=== PATIENT | female | born 1970 | race Caucasian/White ===

== ENCOUNTER 2018-07-05 07:38 | Inpatient (IN) | payer SELFPAY ==
[~2018-07-05] VITALS: Ht 162.6 cm; Wt 63.5 kg
--- OUTSIDE RECORDS SUMMARY | 2018-07-05 07:43 | XMS REPORT ---
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
--- OUTSIDE RECORDS SUMMARY | 2018-07-05 07:43 | XMS REPORT ---
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
--- OUTSIDE RECORDS SUMMARY | 2018-07-05 07:43 | XMS REPORT ---
Author Author PJ BECKFORD 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 377003952 ALLERGIES No Known Allergies SOCIAL HISTORY Never Assessed PLAN OF CARE Activity Details Follow Up 6 Months Reason: VITAL SIGNS Height 65 in 2017-02-09 Weight 142.8 lbs 2017-02-09 Temperature 98.9 degrees Fahrenheit 2017-02-09 Heart Rate 76 bpm 2017-02-09 Respiratory Rate 18 2017-02-09 BMI 23.76 kg/m2 2017-02-09 Blood pressure systolic 130 mmHg 2017-02-09 Blood pressure diastolic 78 mmHg 2017-02-09 MEDICATIONS Medication Instructions Dosage Frequency Start Date End Date Duration Status Celexa 20 MG Orally Once a day 1 24h Aug, Active Xanax 0.25 MG Orally 2 times a day, prn anxiety 1 tablet Aug, Active RESULTS Name Result Date Reference Range CBC 2017-02-09 WBC 8.2 3.4-10.8 RBC 4.15 3.77-5.28 Hemoglobin 12.3 11.1-15.9 Hematocrit 37.3 34.0-46.6 MCV 90 79-97 MCH 29.6 26.6-33.0 MCHC 33.0 31.5-35.7 RDW 13.7 12.3-15.4 Platelets 321 150-379 Neutrophils 63 Lymphs 27 Monocytes 6 Eos 3 Basos 1 Immature Cells Neutrophils (Absolute) 5.1 1.4-7.0 Lymphs (Absolute) 2.2 0.7-3.1 Monocytes(Absolute) 0.5 0.1-0.9 Eos (Absolute) 0.2 0.0-0.4 Baso (Absolute) 0.1 0.0-0.2 Immature Granulocytes 0 Immature Grans (Abs) 0.0 0.0-0.1 NRBC Hematology Comments: PROCEDURES Procedure Date Ordered Result Body Site COMPLETE CBC W/AUTO DIFF WBC February 09, 2017 VENIPUNCT, ROUTINE* February 09, 2017 IMMUNIZATIONS No Known Immunizations MEDICAL (GENERAL) HISTORY Type Description Date Medical History anxiety Surgical History x 3 Hospitalization History Child
--- OUTSIDE RECORDS SUMMARY | 2018-07-05 07:43 | XMS REPORT ---
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 Problem Anxiety F41.9 Active Assessment Anxiety F41.9 Active Assessment Family history of heart disease Z82.49 Active Medications Medication Code System Code Instructions Start Date End Date Status Dosage Xanax [facility] [address]-29 0.25 MG Orally 2 times a day, prn anxiety Aug 05, 2016 1 tablet Celexa [facility] [address]-40 20 MG Orally Once a day Aug 05, 2016 1 Procedures Procedure Coding System Code Date LIPID PANEL CPT-4 84427 Aug 05, 2016 VENIPUNCT, ROUTINE* CPT-4 28990 Aug 05, 2016 COMPREHEN METABOLIC PANEL CPT-4 56567 Aug 05, 2016 Office Visit, New Pt., Level 3 CPT-4 34143 Aug 05, 2016 Vital Signs Date/Time: Aug 05, 2016 Cardiac Monitoring Heart Rate 80 bpm Weight 143.4 lbs Height 65 in BMI 23.86 Index Blood Pressure Diastolic 92 mmHg Blood Pressure Systolic 148 mmHg Results Name Result Date Reference Range Unit Abnormality Flag LIPID PANEL ----HDL Cholesterol 67 20160805 >39 mg/dL ----VLDL Cholesterol Zain 14 20160805 5-40 mg/dL ----LDL Cholesterol Calc 150 20160805 0-99 mg/dL H ----Cholesterol, Total 231 20160805 100-199 mg/dL H ----Triglycerides 68 50351131 0-149 mg/dL ROUTINE VENIPUNCTURE CMP ----Sodium, Serum 143 20160805 136-144 mmol/L ----BUN/Creatinine Ratio 14 20160805 9-23 ----Chloride, Serum 104 20160805 97-106 mmol/L ----Potassium, Serum 4.5 57211062 3.5-5.2 mmol/L ----Calcium, Serum 9.5 73869984 8.7-10.2 mg/dL ----Protein, Total, Serum 7.3 54159861 6.0-8.5 g/dL ----Carbon Dioxide, Total 21 20160805 18-29 mmol/L ----A/G Ratio 1.6 98203930 1.1-2.5 ----eGFR If NonAfricn Am 99 13254089 >59 mL/min/1.73 ----Bilirubin, Total 0.2 69090255 0.0-1.2 mg/dL ----eGFR If Africn Am 115 83318714 >59 mL/min/1.73 ----BUN 10 19029414 6-24 mg/dL ----Albumin, Serum 4.5 28741204 3.5-5.5 g/dL ----Globulin, Total 2.8 08632703 1.5-4.5 g/dL ----Creatinine, Serum 0.72 68550667 0.57-1.00 mg/dL ----ALT (SGPT) 13 20160805 0-32 IU/L ----Glucose, Serum 98 15137342 65-99 mg/dL ----Alkaline Phosphatase, S 69 68722259 39-117 IU/L ----AST (SGOT) 13 20160805 0-40 IU/L Summary Purpose eClinicalWorks Submission
--- OUTSIDE RECORDS SUMMARY | 2018-07-05 07:43 | XMS REPORT ---
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 Unknown Non Drug Allergy Sep, Unknown SOCIAL HISTORY No smoking Hx information available PLAN OF CARE VITAL SIGNS Height 65 in 2016-09-05 Weight 138.0 lbs 2016-09-05 Heart Rate 84 bpm 2016-09-05 Respiratory Rate 20 2016-09-05 BMI 22.96 kg/m2 2016-09-05 Blood pressure systolic 150 mmHg 2016-09-05 Blood pressure diastolic 82 mmHg 2016-09-05 MEDICATIONS Medication Instructions Dosage Frequency Start Date End Date Duration Status Celexa 20 MG Orally Once a day 1 24h Aug, Active Xanax 0.25 MG Orally 2 times a day, prn anxiety 1 tablet Aug, Active RESULTS No Results PROCEDURES Procedure Date Ordered Related Diagnosis Body Site Office Visit, Est Pt., Level 2 Sep 05, 2016 IMMUNIZATIONS No Known Immunizations
--- OUTSIDE RECORDS SUMMARY | 2018-07-05 07:43 | XMS REPORT ---
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 334859206 ALLERGIES No Information ENCOUNTERS Encounter Location Date Diagnosis [place] [id number] [place] [phone] May, 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 [place] [address] [address] May, [place] [address] [address] January, Anxiety F41.9 and Easy bruisability R23.8 [place] [id number] [place] [phone] Dec, 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
--- OUTSIDE RECORDS SUMMARY | 2018-07-05 07:43 | XMS REPORT ---
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
[2018-07-05] MEDS ORDERED: NS IV 1000 ML 1,000 ML IV ONE (08:10)
[2018-07-05] MEDS ORDERED: fentaNYL INJECTION 100 MCG/2 ML AMP IVP ONE ×2 (08:15→10:30)
[2018-07-05] MEDS ORDERED: ONDANSETRON 4 MG/2 ML (SDV) Z0FRAN IVP ONE (08:15)
[2018-07-05 08:41] LABS: BILIRUBIN,URINE NEGATIVE (NEGATIVE); CLARITY,URINE CLEAR; COLOR,URINE YELLOW; GLUCOSE, URINE (UA) NEGATIVE (NEGATIVE); KETONES,URINE 4+ (NEGATIVE); LEUKOCYTE ESTERASE ,URINE NEGATIVE (NEGATIVE); NITRITE,URINE NEGATIVE (NEGATIVE); PH,URINE 6.5 (5-9); PROTEIN,URINE NEGATIVE (NEGATIVE); UROBILINOGEN,URINE NORMAL (NORMAL)
[2018-07-05 08:44] LABS: BASOPHILS # (AUTO) 0.1 10^3/uL (0.0-0.1); BASOPHILS % (AUTO) 0 % (0-10); EOSINOPHILS % (AUTO) 0 % (0-10); HEMATOCRIT 39 % (35-52); HEMOGLOBIN 13.7 G/DL (11.5-16.0); LYMPHOCYTES # (AUTO) 1.3 X 10^3 (1.0-4.0); LYMPHOCYTES % (AUTO) 4 % (12-44); MEAN CORPUSCULAR HEMOGLOBIN 31 PG (25-34); MEAN CORPUSCULAR HGB CONC 35 G/DL (32-36); MEAN CORPUSCULAR VOLUME 86 FL (80-99); MEAN PLATELET VOLUME 10.2 FL (7.4-10.4); MONOCYTES # (AUTO) 1.2 X 10^3 (0.0-1.0); MONOCYTES % (AUTO) 4 % (0-12); NEUTROPHILS # (AUTO) 28.8 X 10^3 (1.8-7.8); NEUTROPHILS % (AUTO) 92 % (42-75); PLATELET COUNT 340 10^3/uL (130-400); RED BLOOD COUNT 4.49 10^6/uL (4.35-5.85); RED CELL DISTRIBUTION WIDTH 13.5 % (10.0-14.5)
[2018-07-05 08:49] VITALS: BP 120/76
[2018-07-05 08:53] LABS: WHITE BLOOD COUNT 31.3 10^3/uL (4.3-11.0)
[2018-07-05 08:58] LABS: BACTERIA,URINE NEGATIVE /HPF; RBC,URINE RARE /HPF; SQUAMOUS EPITHELIAL CELL,UR 0-2 /HPF; WBC,URINE 0-2 /HPF
[2018-07-05 09:07] LABS: ALANINE AMINOTRANSFERASE 12 U/L (0-55); ALBUMIN 3.8 GM/DL (3.2-4.5); ALKALINE PHOSPHATASE 56 U/L (40-136); BILIRUBIN,TOTAL 0.4 MG/DL (0.1-1.0); BUN/CREATININE RATIO 10; CALCIUM 9.2 MG/DL (8.5-10.1); CARBON DIOXIDE 17 MMOL/L (21-32); CHLORIDE 107 MMOL/L (98-107); CREATININE SERUM 0.71 MG/DL (0.60-1.30); GFR ESTIMATED > 60; GLUCOSE 121 MG/DL (70-105); LIPASE < 4 U/L (8-78); POTASSIUM 3.8 MMOL/L (3.6-5.0); SODIUM 137 MMOL/L (135-145); TOTAL PROTEIN 6.6 GM/DL (6.4-8.2)
[2018-07-05 09:08] LABS: BAND NEUTROPHILS 7 %; BASOPHILS % (MANUAL) 0 %; EOSINOPHILS % (MANUAL) 0 %; HYPERSEGMENTED NEUT SLIGHT; LYMPHOCYTES % (MANUAL) 6 %; MONOCYTES % (MANUAL) 4 %; NEUTROPHILS % (MANUAL) 83 %; POIKILOCYTOSIS SLIGHT
[2018-07-05 09:09] LABS: ELLIPT/OVALOCYTES SLIGHT; TOXIC GRANULATION/VACUOLAZATIO 1+
[2018-07-05] MEDS ORDERED: IOHEXOL 350 MG/ML 100 ML (OMNIPAQUE 350) VIAL IV ONE (09:15)
[2018-07-05] MEDS ORDERED: NS 250 ML (IVPB) BAG IV ONE (09:15)
--- NOTE | 2018-07-05 10:01 | Diagnostic Imaging Report ---
PROCEDURE: CT abdomen and pelvis with contrast. TECHNIQUE: Multiple contiguous axial images were obtained through the abdomen and pelvis after administration of intravenous contrast. INDICATION: Nausea and right lower quadrant pain. FINDINGS: The lung bases are clear. No discrete liver mass is seen. The gallbladder is unremarkable. The pancreas and spleen are unremarkable. No adrenal mass is detected. Left kidney is unremarkable. Right kidney does contain some cortical scarring, similar to CT from 2009. The aorta is non-aneurysmal. There is significant long segment of wall thickening involving the transverse colon. There appears to be lesser involvement of the ascending colon. The descending colon and sigmoid are unremarkable. There is some questionable wall thickening involving the terminal ileum as well. No free fluid is identified. No fluid collection or free air is identified. Uterus and bladder are unremarkable. There is a left adnexal cyst measuring 2.1 cm. No abdominal or pelvic lymphadenopathy is seen. IMPRESSION: Significant wall thickening involving the colon, particularly the transverse colon with lesser involvement of the ascending colon and terminal ileum. Features are consistent with nonspecific colitis. Inflammatory bowel disease cannot be entirely excluded. No abscess or bowel obstruction is seen. No free air is detected. Dictated by: Dictated on workstation # [id number]
--- NOTE | 2018-07-05 10:04 | ED Abdominal Pain ---
General Chief Complaint: Abdominal/GI Problems Stated Complaint: ABD PAIN Nursing Triage Note: AMB TO ROOM C/O ABD PAIN WITH DIARRHEA FOR 6 WEEKS HAS NOT BEEN SEEN BY HER DRRafa FOR THIS COMPLAINT. LAST NIGHT STARTED WITH R LOWER QUAD PAIN Sepsis Screen: No Definite Risk Source of Information: Patient Exam Limitations: No Limitations History of Present Illness Date Seen by Provider: Jul 05, 2018 Time Seen by Provider: 07:58 Initial Comments This 47-year-old woman presents to the emergency room with profound diarrhea for up to one month. She now has developed diffuse abdominal pain especially in the right lower quadrant over the night. She has had dry heaves. She denies any blood in her stools. She describes the pain as sharp and shooting since about 21:00. She denies fever. Stools are watery. She denies any urinary changes. Pain has been fairly constant since its onset. She believes her water at home is contaminated and she also has exposure to chickens on the property. Allergies and Home Medications Allergies Coded Allergies: No Known Drug Allergies (Unverified , 07/05/18) Home Medications No Active Prescriptions or Reported Meds Patient Home Medication List Home Medication List Reviewed: Yes Review of Systems Review of Systems Constitutional: no symptoms reported EENTM: No Symptoms Reported Respiratory: No Symptoms Reported Cardiovascular: No Symptoms Reported Gastrointestinal: See HPI Genitourinary: No Symptoms Reported Musculoskeletal: no symptoms reported Skin: no symptoms reported Psychiatric/Neurological: No Symptoms Reported Endocrine: No Symptoms Reported Hematologic/Lymphatic: No Symptoms Reported Past Cghtvaj-Fvnivd-Bsubxy Hx Past Med/Social Hx: Reviewed and Corrections made Patient Social History Alcohol Use: Denies Use Recreational Drug Use: Yes Smoking Status: Current Someday Smoker Recent Foreign Travel: No Contact w/Someone Who Travel: No Recent Infectious Disease Expo: No Past Medical History Surgeries: Yes Section Respiratory: No Cardiac: No Neurological: No Genitourinary: No Gastrointestinal: No Musculoskeletal: No Endocrine: No HEENT: No Cancer: No Psychosocial: No Physical Exam Vital Signs Vital Signs - First Documented 07/05/18 07:40 Temp 99.2 Pulse 100 Resp 18 B/P (MAP) 121/78 (92) Pulse Ox 98 O2 Delivery Room Air Capillary Refill : Less Than 3 Seconds Height/Weight/BMI Height: 5'4.00" Weight: 140lbs. oz. 63.069037bd; BMI Method:Stated General Appearance: WD/WN, no apparent distress HEENT: PERRL/EOMI, normal ENT inspection Neck: normal inspection Respiratory: lungs clear, normal breath sounds, no respiratory distress, no accessory muscle use Cardiovascular: no edema, no murmur, tachycardia Gastrointestinal: normal bowel sounds, soft, tenderness (tenderness throughout but most profound in the suprapubic region), other (abdominal bruit) Extremities: normal inspection, no pedal edema Neurologic/Psychiatric: director of social work II-XII nml as tested, no motor/sensory deficits, alert, normal mood/affect, oriented x 3 Skin: normal color, warm/dry Focused Exam Lactate Level 07/05/18 10:17: Lactic Acid Level Laboratory Tests Test 07/05/18 10:17 Progress/Results/Core Measures Results/Orders Lab Results Laboratory Tests Test 07/05/18 08:27 07/05/18 08:30 07/05/18 10:17 Range/Units White Blood Count 31.3 *H 4.3-11.0 10^3/uL Red Blood Count 4.49 4.35-5.85 10^6/uL Hemoglobin 13.7 11.5-16.0 G/DL Hematocrit 39 35-52 % Mean Corpuscular Volume 86 80-99 FL Mean Corpuscular Hemoglobin 31 25-34 PG Mean Corpuscular Hemoglobin Concent 35 32-36 G/DL Red Cell Distribution Width 13.5 10.0-14.5 % Platelet Count 340 130-400 10^3/uL Mean Platelet Volume 10.2 7.4-10.4 FL Neutrophils (%) (Auto) 92 H 42-75 % Lymphocytes (%) (Auto) 4 L 12-44 % Monocytes (%) (Auto) 4 0-12 % Eosinophils (%) (Auto) 0 0-10 % Basophils (%) (Auto) 0 0-10 % Neutrophils # (Auto) 28.8 H 1.8-7.8 X 10^3 Lymphocytes # (Auto) 1.3 1.0-4.0 X 10^3 Monocytes # (Auto) 1.2 H 0.0-1.0 X 10^3 Eosinophils # (Auto) 0.0 0.0-0.3 10^3/uL Basophils # (Auto) 0.1 0.0-0.1 10^3/uL Neutrophils % (Manual) 83 % Lymphocytes % (Manual) 6 % Monocytes % (Manual) 4 % Eosinophils % (Manual) 0 % Basophils % (Manual) 0 % Band Neutrophils 7 % Hypersegmented Neutrophils SLIGHT Toxic Granulation 1+ Dohle Bodies SLIGHT Poikilocytosis SLIGHT Elliptocytes SLIGHT Sodium Level 137 135-145 MMOL/L Potassium Level 3.8 3.6-5.0 MMOL/L Chloride Level 107 98-107 MMOL/L Carbon Dioxide Level 17 L 21-32 MMOL/L Anion Gap 13 5-14 MMOL/L Blood Urea Nitrogen 7 7-18 MG/DL Creatinine 0.71 0.60-1.30 MG/DL Estimat Glomerular Filtration Rate > 60 BUN/Creatinine Ratio 10 Glucose Level 121 H 70-105 MG/DL Calcium Level 9.2 8.5-10.1 MG/DL Corrected Calcium 9.4 8.5-10.1 MG/DL Total Bilirubin 0.4 0.1-1.0 MG/DL Aspartate Amino Transf (AST/SGOT) 8 5-34 U/L Alanine Aminotransferase (ALT/SGPT) 12 0-55 U/L Alkaline Phosphatase 56 40-136 U/L Total Protein 6.6 6.4-8.2 GM/DL Albumin 3.8 3.2-4.5 GM/DL Lipase < 4 L 8-78 U/L Serum Test, Qualitative NEGATIVE NEGATIVE Urine Color YELLOW Urine Clarity CLEAR Urine pH 6.5 5-9 Urine Specific [place] 1.010 L 1.016-1.022 Urine Protein NEGATIVE NEGATIVE Urine Glucose (UA) NEGATIVE NEGATIVE Urine Ketones 4+ H NEGATIVE Urine Nitrite NEGATIVE NEGATIVE Urine Bilirubin NEGATIVE NEGATIVE Urine Urobilinogen NORMAL NORMAL MG/DL Urine Leukocyte Esterase NEGATIVE NEGATIVE Urine RBC (Auto) 2+ H NEGATIVE Urine RBC RARE /HPF Urine WBC 0-2 /HPF Urine Squamous Epithelial Cells 0-2 /HPF Urine Renal Epithelial Cells NONE /HPF Urine Crystals NONE /LPF Urine Bacteria NEGATIVE /HPF Urine Casts NONE /LPF Urine Mucus NEGATIVE /LPF Urine Culture Indicated NO My Orders Orders - TUNDE ALDANA MD Cbc With Automated Diff (07/05/18 08:10) Comprehensive Metabolic Panel (07/05/18 08:10) Hcg,Qualitative Serum (07/05/18 08:10) Lipase (07/05/18 08:10) Ua Culture If Indicated (07/05/18 08:10) Saline Lock/Iv-Start (07/05/18 08:10) Ns Iv 1000 Ml (Sodium Chloride 0.9%) (07/05/18 08:10) Fentanyl Injection (Sublimaze Injection (07/05/18 08:15) Ondansetron Injection (Zofran Injectio (07/05/18 08:15) Manual Differential (07/05/18 08:27) Ct Abdomen/Pelvis W (07/05/18 09:13) Iohexol Injection (Omnipaque 350 Mg/Ml 1 (07/05/18 09:15) Ns (Ivpb) (Sodium Chloride 0.9%) (07/05/18 09:15) Pharmacy Communication (Pharmacy Communi (07/05/18 09:15) Blood Culture (07/05/18 10:06) Lactic Acid Analyzer (07/05/18 10:06) Ciprofloxacin Iv 400mg/200ml (Cipro Iv S (07/05/18 10:15) Fentanyl Injection (Sublimaze Injection (07/05/18 10:30) Medications Given in ED Current Medications Medications Dose Ordered Sig/Andrea Route Start Time Stop Time Status Last Admin Dose Admin Fentanyl Citrate 50 mcg ONCE ONCE IVP 07/05/18 08:15 07/05/18 08:16 DC 07/05/18 08:37 50 MCG Fentanyl Citrate 50 mcg ONCE ONCE IVP 07/05/18 10:30 07/05/18 10:31 DC 07/05/18 10:28 50 MCG Iohexol 100 ml ONCE ONCE IV 07/05/18 09:15 07/05/18 09:33 DC 07/05/18 09:37 100 ML Ondansetron HCl 4 mg ONCE ONCE IVP 07/05/18 08:15 07/05/18 08:16 DC 07/05/18 08:28 4 MG Sodium Chloride 250 ml ONCE ONCE IV 07/05/18 09:15 07/05/18 09:33 DC 07/05/18 09:37 80 ML Sodium Chloride 1,000 ml @ 0 mls/hr Q0M ONCE IV 07/05/18 08:10 07/05/18 08:12 DC 07/05/18 08:29 1,000 MLS/HR Vital Signs/I&O 07/05/18 07/05/18 07/05/18 07:40 08:49 10:28 Temp 99.2 99.2 Pulse 100 82 Resp 18 18 B/P (MAP) 121/78 (92) 120/76 (91) Pulse Ox 98 100 O2 Delivery Room Air Room Air Blood Pressure Mean: 91 Progress Progress Note : Progress Note Patient was treated with fentanyl and Zofran. IV fluids were infused. CT imaging was pursued after review of creatinine. CT revealed no pathology to explain the abdominal bruit. Findings of colitis explain the abdominal pain. Stool studies will be pursued with patient's next bowel movement. Case was reviewed with Dr. Patten who agrees with admission and IV antibiotics. Blood cultures were obtained prior to starting antibiotics. Dr. Patten requesting consultation with surgery. Dr. Lucio excepts a consult. Diagnostic Imaging Diagonstic Imaging: CT Plain Films/CT/US/NM/MRI: abdomen, pelvis Comments CT abdomen and pelvis viewed by me and report reviewed. See report below: NAME: FRACISCO JOAQUIN [facility] REC#: [id number] PT STATUS: REG ER : 1970 PHYSICIAN: TUNDE ALDANA MD ADMIT DATE: 07/05/18/ER Draft Date of Exam:07/05/18 CT ABDOMEN/PELVIS W PROCEDURE: CT abdomen and pelvis with contrast. TECHNIQUE: Multiple contiguous axial images were obtained through the abdomen and pelvis after administration of intravenous contrast. INDICATION: Nausea and right lower quadrant pain. FINDINGS: The lung bases are clear. No discrete liver mass is seen. The gallbladder is unremarkable. The pancreas and spleen are unremarkable. No adrenal mass is detected. Left kidney is unremarkable. Right kidney does contain some cortical scarring, similar to CT from 2009. The aorta is non-aneurysmal. There is significant long segment of wall thickening involving the transverse colon. There appears to be lesser involvement of the ascending colon. The descending colon and sigmoid are unremarkable. There is some questionable wall thickening involving the terminal ileum as well. No free fluid is identified. No fluid collection or free air is identified. Uterus and bladder are unremarkable. There is a left adnexal cyst measuring 2.1 cm. No abdominal or pelvic lymphadenopathy is seen. IMPRESSION: Significant wall thickening involving the colon, particularly the transverse colon with lesser involvement of the ascending colon and terminal ileum. Features are consistent with nonspecific colitis. Inflammatory bowel disease cannot be entirely excluded. No abscess or bowel obstruction is seen. No free air is detected. Dictated on workstation # [id number] Dict: 07/05/18 0952 Trans: 07/05/18 1001 [facility] [id number] Interpreted by: FOSTER TRUJILLO MD Departure Communication (Admissions) Time/Spoke to Admitting Phy: 10:15 Dr. Patten Time/Spoke to Consulting Phy: 10:30 Dr. Lucio Impression Primary Impression: Sepsis Qualified Codes: A41.9 - Sepsis, unspecified organism Additional Impressions: Colitis Nausea and vomiting Qualified Codes: R11.2 - Nausea with vomiting, unspecified Abdominal pain Qualified Codes: R10.9 - Unspecified abdominal pain Disposition: 01 HOME, SELF-CARE Condition: Improved Admissions Decision to Admit Reason: Admit from ER (General) Decision to Admit/Date: Jul 05, 2018 Time/Decision to Admit Time: 10:15 Departure-Patient Inst. Referrals: TAYLOR PATTEN DO (PCP/Family) Primary Care Physician Scripts No Active Prescriptions or Reported Meds TUNDE ALDANA MD Jul 05, 2018 10:04
[2018-07-05] MEDS ORDERED: CIPROFLOXACIN IV 400MG/200ML 200 ML IV ONE (10:15)
[2018-07-05] MEDS ORDERED: ONDANSETRON 4 MG/2 ML (SDV) Z0FRAN ONE (10:51)
[2018-07-05] MEDS ORDERED: ONDANSETRON 4 MG (ZOFRAN) ORAL DISSOLVE TAB PO PRN (11:30)
[2018-07-05] MEDS: D5 1/2 NS W/KCL 20 MEQ/L 1,000 ML IV SCH ×2 (12:07→19:32)
[2018-07-05] MEDS: fentaNYL INJECTION 100 MCG/2 ML AMP IVP PRN (12:48)
--- NOTE | 2018-07-05 12:53 | History & Physicial ---
History of Present Illness History of Present Illness Reason for visit/HPI Patient came to the emergency room complaining of stomach pain and diarrhea. Patient lost 11 pounds in the last 6 weeks. 2 weeks ago felt worse and she felt was due to the [place] food. Patient complains of profound diarrhea or. Patient also having nausea and vomiting. CAT scan of the abdomen shows colitis. White blood cell count over 31,000. Medications now on [id number] Tylenol and Advil. Surgeries 3 sections. Family history Sr. diabetic, mother non-Hodgkin's lymphoma, denies asthma TB heart disease. Patient admits to smoking Date of Admission Jul 05, 2018 at 10:48 Time Seen by a Provider: 12:48 I consulted on this patient on 07/05/18 12:48 Attending Physician Gerald Patten DO Admitting Physician Gerald Patten DO Consult Allergies and Home Medications Allergies Coded Allergies: No Known Drug Allergies (Unverified , 07/05/18) Home Medications No Active Prescriptions or Reported Meds Patient Home Medication List Home Medication List Reviewed: Yes Past Sowffyy-Dfedqo-Lndcrm Hx Patient Social History Marrital Status: Employed/Student: unemployed Alcohol Use: Denies Use Recreational Drug Use: Yes Smoking Status: Current Someday Smoker Recent Foreign Travel: No Contact w/other who traveled: No Recent Infectious Disease Expo: No Surgeries Yes Section Respiratory No Cardiovascular No Neurological No Genitourinary No Gastrointestinal No Musculoskeletal No Endocrine History of Endocrine Disorders: No HEENT History of HEENT Disorders: No Cancer No Psychosocial History of Psychiatric Problem: No Review of Systems Constitutional: no symptoms reported EENTM: no symptoms reported Respiratory: no symptoms reported Cardiovascular: no symptoms reported Gastrointestinal: abdominal pain (RLQ), diarrhea Genitourinary: no symptoms reported Physical Exam Vital Signs Vital Signs - First Documented 07/05/18 07:40 Temp 99.2 Pulse 100 Resp 18 B/P (MAP) 121/78 (92) Pulse Ox 98 O2 Delivery Room Air Capillary Refill : Less Than 3 Seconds Height, Weight, BMI Height: 5'4.00" Weight: 140lbs. oz. 63.563830ii; BMI Method:Stated General Appearance: No Apparent Distress, WD/WN Eyes: Bilateral Eye Normal Inspection HEENT: Normal ENT Inspection Neck: Full Range of Motion, Normal Inspection, Non Tender Respiratory: Chest Non Tender, Lungs Clear, Normal Breath Sounds, No Accessory Muscle Use, No Respiratory Distress Cardiovascular: Regular Rate, Rhythm, No Murmur Gastrointestinal: Other (Worse abdominal plain and right lower quadrant but is diffuse over abdomen) Assessment/Plan Assessment and Plan Sepsis, colitis, nausea and vomiting, diarrhea, and weight loss Admission Diagnosis Admission Status: Inpatient Order (span 2 midnights) Reason for Inpatient Admission: White blood cell count 31,000. CAT scan showing colitis area Diarrhea and nausea and vomiting GERALD PATTEN DO Jul 05, 2018 12:53
[2018-07-05] MEDS ORDERED: SIME125T PO (13:08)
[2018-07-05] MEDS ORDERED: IBUP-30 PO (13:08)
[2018-07-05] MEDS ORDERED: ACET325T38 PO (13:08)
[2018-07-05] MEDS ORDERED: ONDANSETRON 4 MG/2 ML (SDV) Z0FRAN IVP PRN (13:15)
[2018-07-05] MEDS ORDERED: PROMETHAZINE INJ 25 MG/ML (PHENERGAN) AMP IVP PRN (13:15)
[2018-07-05] MEDS ORDERED: CATHETER FLUSH 10 ML SYR IV PRN (13:30)
[2018-07-05] MEDS: metroNIDAZOLE 500 MG/100 ML IVPB (PRE-MIX) IV SCH (14:27)
[2018-07-05] MEDS ORDERED: BISACODYL 5 MG (DULCOLAX) TABLET PO NR (16:00)
[2018-07-05] MEDS ORDERED: POLYETHYLENE GLYCOL 17 GM (MIRALAX) PACK PO NR (16:00)
[2018-07-05 16:10] VITALS: BP 142/73
[2018-07-05 19:35] VITALS: BP 129/64
[2018-07-05] MEDS: POLYETHYLENE GLYCOL 17 GM (MIRALAX) PACK PO SCH (21:23)
[2018-07-05] MEDS: CIPROFLOXACIN 400 MG/D5W 200 ML (PRE-MIX) IV SCH (21:23)
--- NOTE | 2018-07-05 21:41 | Consultation ---
History of Present Illness History of Present Illness Patient Consulted On(annie/time) 07/05/18 21:32 Time Seen by Provider: 11:31 History of Present Illness Surgery asked to consult regarding abdominal pain; CT scan read as colitis. HPI per ED: This 47-year-old woman presents to the emergency room with profound diarrhea for up to one month. She now has developed diffuse abdominal pain especially in the right lower quadrant over the night. She has had dry heaves. She denies any blood in her stools. She describes the pain as sharp and shooting since about 21:00. She denies fever. Stools are watery. She denies any urinary changes. Pain has been fairly constant since its onset. She believes her water at home is contaminated and she also has exposure to chickens on the property. Pt's thinks she has had diarrhea for 6 weeks, pt states its only been bad for the past 2 weeks. The states she's also had some diarrhea off and on and then had some "GI bug in the family for the past couple weeks as well. Patient states she's been unable to eat or drink and has lost weight recently. Patient denies any hematochezia or melena and thinks it's been " brown with chunks". Patient states the pain is so severe that/he came to the emergency room. She denies any recent travel. No other sick contacts. Allergies and Home Medications Allergies Coded Allergies: No Known Drug Allergies (Unverified , 07/05/18) Home Medications Acetaminophen 325 Mg Tablet, 325 MG PO Q4H PRN for PAIN-MILD, (Reported) Ibuprofen 200 Mg Tablet, 200 MG PO Q6H PRN for PAIN-MILD, (Reported) Simethicone 125 Mg Tab.chew, 125 MG PO TID PRN for GAS, (Reported) Patient Home Medication List Home Medication List Reviewed: Yes Past Iwbthji-Efajdp-Ufncor Hx Patient Social History Alcohol Use: Denies Use Recreational Drug Use: Yes Smoking Status: Current Someday Smoker Recent Foreign Travel: No Contact w/Someone Who Travel: No Recent Infectious Disease Expo: No Surgeries History of Surgeries: Yes Surgeries: Section Respiratory History of Respiratory Disorde: No Cardiovascular History of Cardiac Disorders: No Neurological History of Neurological Disord: No Reproductive System : No Genitourinary History of Genitourinary Disor: No Gastrointestinal History of Gastrointestinal Di: No Musculoskeletal History of Musculoskeletal Dis: No Endocrine History of Endocrine Disorders: No HEENT History of HEENT Disorders: No Cancer History of Cancer: No Psychosocial History of Psychiatric Problem: No Integumentary History of Skin or Integumenta: No Blood Transfusions History of Blood Disorders: No Adverse Reaction to a Blood Tr: No Family Medical History Significant Family History: Cancer (Father-lung, Mother NHL, Sisters - Breast CA) Review of Systems-General Constitutional: chills (felt hot at home, but didn't have thermometer), diaphoresis, malaise, weakness, weight loss EENTM: No blurred vision, No hoarseness, No mouth pain, No epistaxis, No throat swelling Respiratory: No cough, No dyspnea on exertion, No hemoptysis Cardiovascular: No chest pain, No palpitations Gastrointestinal: abdominal pain; No dysphagia, No hematemesis; nausea, vomiting Genitourinary: No dysuria, No frequency, No hematuria Musculoskeletal: No back pain, No joint pain, No joint swelling, No muscle stiffness Skin: No change in color, No change in hair/nails Psychiatric/Neurological: Denies Depressed, Denies Headache, Denies Seizure, Denies Tremors Other pt denies any abnormal bleeding or bruising Physical Exam-General Problems Physical Exam Vital Signs Vital Signs - First Documented 07/05/18 07:40 Temp 99.2 Pulse 100 Resp 18 B/P (MAP) 121/78 (92) Pulse Ox 98 O2 Delivery Room Air Capillary Refill : Less Than 3 Seconds General Appearance: WD/WN, mild distress Eyes: Bilateral Eye PERRL, Bilateral Eye Abnormal EOM HEENT: pharynx normal; No scleral icterus (R), No scleral icterus (L), No pale conjunctivae (R), No pale conjunctivae (L) Neck: non-tender, supple, normal inspection Respiratory: chest non-tender, lungs clear, normal breath sounds, no respiratory distress, no accessory muscle use Cardiovascular: regular rate, rhythm, no edema, no murmur Gastrointestinal: normal bowel sounds, soft, no organomegaly, tenderness ( epigastric and LUQ); No mass Back: no CVA tenderness, no vertebral tenderness Extremities: normal range of motion, no pedal edema, no calf tenderness, normal capillary refill Neurologic/Psychiatric: hospitalist program director II-XII nml as tested, no motor/sensory deficits, alert, normal mood/affect, oriented x 3 Skin: normal color, warm/dry Lymphatic: no adenopathy (neck, axilla, groin) Data Review Labs Laboratory Tests 07/05/18 08:27: White Blood Count 31.3*H, Red Blood Count 4.49, Hemoglobin 13.7, Hematocrit 39, Mean Corpuscular Volume 86, Mean Corpuscular Hemoglobin 31, Mean Corpuscular Hemoglobin Concent 35, Red Cell Distribution Width 13.5, Platelet Count 340, Mean Platelet Volume 10.2, Neutrophils (%) (Auto) 92H, Lymphocytes (%) (Auto) 4L , Monocytes (%) (Auto) 4, Eosinophils (%) (Auto) 0, Basophils (%) (Auto) 0, Neutrophils # (Auto) 28.8H, Lymphocytes # (Auto) 1.3, Monocytes # (Auto) 1.2H, Eosinophils # (Auto) 0.0, Basophils # (Auto) 0.1, Neutrophils % (Manual) 83, Lymphocytes % (Manual) 6, Monocytes % (Manual) 4, Eosinophils % (Manual) 0, Basophils % (Manual) 0, Band Neutrophils 7, Hypersegmented Neutrophils SLIGHT, Toxic Granulation 1+, Dohle Bodies SLIGHT, Poikilocytosis SLIGHT, Elliptocytes SLIGHT, Sodium Level 137, Potassium Level 3.8, Chloride Level 107, Carbon Dioxide Level 17L, Anion Gap 13, Blood Urea Nitrogen 7, Creatinine 0.71, Estimat Glomerular Filtration Rate > 60, BUN/Creatinine Ratio 10, Glucose Level 121H, Calcium Level 9.2, Corrected Calcium 9.4, Total Bilirubin 0.4, Aspartate Amino Transf (AST/SGOT) 8, Alanine Aminotransferase (ALT/SGPT) 12, Alkaline Phosphatase 56, Total Protein 6.6, Albumin 3.8, Lipase < 4L, Serum Test, Qualitative NEGATIVE 07/05/18 08:30: Urine Color YELLOW, Urine Clarity CLEAR, Urine pH 6.5, Urine Specific [place] 1.010L, Urine Protein NEGATIVE, Urine Glucose (UA) NEGATIVE, Urine Ketones 4+H, Urine Nitrite NEGATIVE, Urine Bilirubin NEGATIVE, Urine Urobilinogen NORMAL, Urine Leukocyte Esterase NEGATIVE, Urine RBC (Auto) 2+H, Urine RBC RARE, Urine WBC 0-2, Urine Squamous Epithelial Cells 0-2, Urine Renal Epithelial Cells NONE , Urine Crystals NONE, Urine Bacteria NEGATIVE, Urine Casts NONE, Urine Mucus NEGATIVE, Urine Culture Indicated NO 07/05/18 10:17: Lactic Acid Level 1.05 07/05/18 11:40: Stool Occult Blood Immunoassay POSITIVEH Microbiology 07/05/18 C. difficile GDH Antigen & Toxins - Final, Resulted 07/05/18 Stool Culture, Resulted Pending Assessment/Plan Assessment/Plan Assessment/Plan Colitis Diarrhea Patient had a CAT scan which was read as colitis across the transverse colon and the ascending colon. The patient has diarrhea for at least 6 weeks and we will order stool studies for C. difficile, ova and parasites, white cells and all other enteric organisms. In the meantime I think patient would benefit from a colonoscopy so we we will prep her she can have clear liquids and by mouth after midnight and plan to do a colonoscopy possible biopsy possible polypectomy in the morning. Discussed this procedure the patient all risks and complications not limited to pain, bleeding, infection and possibly even intestinal perforation. All questions answered to patient and her 's satisfaction. She states she is very nervous about the colonoscopy and she does have some anxiety about surgery; may need some "medication" to help her prior to the procedure. TONY DUNLAP DO Jul 05, 2018 21:41
[2018-07-06] VITALS: BP 112/66
[2018-07-06] MEDS: D5 1/2 NS W/KCL 20 MEQ/L 1,000 ML IV SCH ×3 (00:53→20:55)
[2018-07-06] MEDS: metroNIDAZOLE 500 MG/100 ML IVPB (PRE-MIX) IV SCH ×4 (00:53→22:15)
[2018-07-06 04:00] VITALS: BP 112/62
[2018-07-06 06:36] LABS: BASOPHILS # (AUTO) 0.1 10^3/uL (0.0-0.1); BASOPHILS % (AUTO) 0 % (0-10); EOSINOPHILS # (AUTO) 0.3 10^3/uL (0.0-0.3); EOSINOPHILS % (AUTO) 2 % (0-10); HEMATOCRIT 34 % (35-52); HEMOGLOBIN 11.6 G/DL (11.5-16.0); LYMPHOCYTES # (AUTO) 1.9 X 10^3 (1.0-4.0); LYMPHOCYTES % (AUTO) 10 % (12-44); MEAN CORPUSCULAR HEMOGLOBIN 29 PG (25-34); MEAN CORPUSCULAR HGB CONC 34 G/DL (32-36); MEAN CORPUSCULAR VOLUME 87 FL (80-99); MEAN PLATELET VOLUME 10.1 FL (7.4-10.4); MONOCYTES # (AUTO) 1.2 X 10^3 (0.0-1.0); MONOCYTES % (AUTO) 6 % (0-12); NEUTROPHILS # (AUTO) 16.5 X 10^3 (1.8-7.8); NEUTROPHILS % (AUTO) 83 % (42-75); PLATELET COUNT 345 10^3/uL (130-400); RED BLOOD COUNT 3.96 10^6/uL (4.35-5.85); RED CELL DISTRIBUTION WIDTH 13.9 % (10.0-14.5)
[2018-07-06 06:57] LABS: ALANINE AMINOTRANSFERASE 9 U/L (0-55); ALKALINE PHOSPHATASE 59 U/L (40-136); BILIRUBIN,TOTAL 0.2 MG/DL (0.1-1.0); BUN/CREATININE RATIO 3; CALCIUM 8.4 MG/DL (8.5-10.1); CARBON DIOXIDE 19 MMOL/L (21-32); CHLORIDE 112 MMOL/L (98-107); CREATININE SERUM 0.65 MG/DL (0.60-1.30); GFR ESTIMATED > 60; GLUCOSE 138 MG/DL (70-105); POTASSIUM 3.6 MMOL/L (3.6-5.0); SODIUM 138 MMOL/L (135-145); TOTAL PROTEIN 5.3 GM/DL (6.4-8.2)
--- NOTE | 2018-07-06 08:06 | Progress Note (SOAP) ---
Subjective Time Seen by a Provider: 08:04 Subjective/Events-last exam Feeling much better today. Patient have colonoscopy this morning. Patient not been any blood thinners. White blood cell count from 31,000 1000-20,000. Patient still has diarrhea. C. difficile negative. Patient looks better today Focused Exam Lactate Level 07/05/18 10:17: Lactic Acid Level 1.05 Objective Exam Vital Signs Date Time Temp Pulse Resp B/P (MAP) Pulse Ox O2 Delivery O2 Flow Rate FiO2 07/05/18 19:35 99.3 88 20 129/64 (85) 98 Room Air 07/05/18 16:10 99.8 82 22 142/73 (96) 99 Room Air 07/05/18 11:16 91 18 130/82 100 07/05/18 10:28 99.2 07/05/18 08:49 82 18 120/76 (91) 100 Room Air I & O 07/06/18 07:00 Intake Total 1300 ml Balance 1300 ml Capillary Refill : Less Than 3 Seconds General Appearance: No Apparent Distress, WD/WN HEENT: Normal ENT Inspection Neck: Full Range of Motion, Normal Inspection Respiratory: Lungs Clear, No Accessory Muscle Use, No Respiratory Distress Cardiovascular: Regular Rate, Rhythm, No Murmur Gastrointestinal: non tender, soft Results Lab Laboratory Tests 07/05/18 08:27: White Blood Count 31.3*H, Red Blood Count 4.49, Hemoglobin 13.7, Hematocrit 39, Mean Corpuscular Volume 86, Mean Corpuscular Hemoglobin 31, Mean Corpuscular Hemoglobin Concent 35, Red Cell Distribution Width 13.5, Platelet Count 340, Mean Platelet Volume 10.2, Neutrophils (%) (Auto) 92H, Lymphocytes (%) (Auto) 4L , Monocytes (%) (Auto) 4, Eosinophils (%) (Auto) 0, Basophils (%) (Auto) 0, Neutrophils # (Auto) 28.8H, Lymphocytes # (Auto) 1.3, Monocytes # (Auto) 1.2H, Eosinophils # (Auto) 0.0, Basophils # (Auto) 0.1, Neutrophils % (Manual) 83, Lymphocytes % (Manual) 6, Monocytes % (Manual) 4, Eosinophils % (Manual) 0, Basophils % (Manual) 0, Band Neutrophils 7, Hypersegmented Neutrophils SLIGHT, Toxic Granulation 1+, Dohle Bodies SLIGHT, Poikilocytosis SLIGHT, Elliptocytes SLIGHT, Sodium Level 137, Potassium Level 3.8, Chloride Level 107, Carbon Dioxide Level 17L, Anion Gap 13, Blood Urea Nitrogen 7, Creatinine 0.71, Estimat Glomerular Filtration Rate > 60, BUN/Creatinine Ratio 10, Glucose Level 121H, Calcium Level 9.2, Corrected Calcium 9.4, Total Bilirubin 0.4, Aspartate Amino Transf (AST/SGOT) 8, Alanine Aminotransferase (ALT/SGPT) 12, Alkaline Phosphatase 56, Total Protein 6.6, Albumin 3.8, Lipase < 4L, Serum Test, Qualitative NEGATIVE 07/05/18 08:30: Urine Color YELLOW, Urine Clarity CLEAR, Urine pH 6.5, Urine Specific [place] 1.010L, Urine Protein NEGATIVE, Urine Glucose (UA) NEGATIVE, Urine Ketones 4+H, Urine Nitrite NEGATIVE, Urine Bilirubin NEGATIVE, Urine Urobilinogen NORMAL, Urine Leukocyte Esterase NEGATIVE, Urine RBC (Auto) 2+H, Urine RBC RARE, Urine WBC 0-2, Urine Squamous Epithelial Cells 0-2, Urine Renal Epithelial Cells NONE , Urine Crystals NONE, Urine Bacteria NEGATIVE, Urine Casts NONE, Urine Mucus NEGATIVE, Urine Culture Indicated NO 07/05/18 10:17: Lactic Acid Level 1.05 07/05/18 11:40: Stool Occult Blood Immunoassay POSITIVEH 07/06/18 06:05: White Blood Count 20.0H, Red Blood Count 3.96L, Hemoglobin 11.6, Hematocrit 34L , Mean Corpuscular Volume 87, Mean Corpuscular Hemoglobin 29, Mean Corpuscular Hemoglobin Concent 34, Red Cell Distribution Width 13.9, Platelet Count 345, Mean Platelet Volume 10.1, Neutrophils (%) (Auto) 83H, Lymphocytes (%) (Auto) 10L, Monocytes (%) (Auto) 6, Eosinophils (%) (Auto) 2, Basophils (%) (Auto) 0, Neutrophils # (Auto) 16.5H, Lymphocytes # (Auto) 1.9, Monocytes # (Auto) 1.2H, Eosinophils # (Auto) 0.3, Basophils # (Auto) 0.1, Sodium Level 138, Potassium Level 3.6, Chloride Level 112H, Carbon Dioxide Level 19L, Anion Gap 7, Blood Urea Nitrogen 2L, Creatinine 0.65, Estimat Glomerular Filtration Rate > 60, BUN/ Creatinine Ratio 3, Glucose Level 138H, Calcium Level 8.4L, Corrected Calcium 9.2, Total Bilirubin 0.2, Aspartate Amino Transf (AST/SGOT) 7, Alanine Aminotransferase (ALT/SGPT) 9, Alkaline Phosphatase 59, Total Protein 5.3L, Albumin 3.0L Microbiology 07/05/18 C. difficile GDH Antigen & Toxins - Final, Resulted 07/05/18 Stool Culture, Resulted Pending Assessment/Plan Assessment/Plan Assess & Plan/Chief Complaint Colitis. Nausea and vomiting. Leukocytosis improving. Patient to have colonoscopy this morning Clinical Quality Measures Admission Status Admission Dx Sepsis, colitis, nausea and vomiting, diarrhea, and weight loss TAYLOR PATTEN DO Jul 06, 2018 08:06
[2018-07-06] MEDS ORDERED: LACTATED RINGERS 1,000 ML IV ONE (08:30)
[2018-07-06] MEDS ORDERED: proPOfol 200 MG/20 ML (DIPRIVAN) VIAL IV ONE (08:36)
[2018-07-06] MEDS ORDERED: FLU QUADRIvalent (5+ YOA) 2018-2019 (AFLURIA) 0.5 ML IM ONE (08:45)
[2018-07-06] MEDS ORDERED: MIDAZOLAM 2 MG/2 ML (VERSED) VIAL ONE (08:48)
[2018-07-06] MEDS: CIPROFLOXACIN 400 MG/D5W 200 ML (PRE-MIX) IV SCH ×2 (09:35→21:07)
--- NOTE | 2018-07-06 11:25 | Progress Note-Post Operative ---
Post-Operative Progess Note Surgeon (s)/Core Measures Abstractor (s) Surgeon TONY DUNLAP DO Core Measures Abstractor: none Pre-Operative Diagnosis Colitis, Diarrhea Post-Operative Diagnosis Same pending pathology and microbiology Procedure & Operative Findings Date of Procedure 07/06/18 Procedure Performed/Findings Colonoscopy with biopsy Anesthesia Type IV sedation by Anesthesia Estimated Blood Loss Estimated blood loss (mL): scant Specimens/Packing Specimens Removed Bx of descending colon Washing of Transverse colon, appeared to be sloughed and necrotic tissue (sent for repeat c. diff and pathology diagnosis of tissue) TONY DUNLAP DO Jul 06, 2018 11:25
--- NOTE | 2018-07-06 11:30 | Progress Note ---
Subjective Time Seen by a Provider: 08:31 Subjective/Events-last exam Pt was seen and examined prior to Colonscopy, I then also went and talked to her again after the procedure. She stated she was hungry and had less abdominal pain than yesterday. She still had some diarrhea and nausea, denied vomiting. Review of Systems General: No Chills, No Night Sweats HEENT: No Head Aches, No Visual Changes Pulmonary: No Dyspnea, No Cough Cardiovascular: No: Chest Pain, Palpitations Gastrointestinal: Nausea, Abdominal Pain, Diarrhea; No: Vomiting Focused Exam Lactate Level 07/05/18 10:17: Lactic Acid Level 1.05 Objective Exam Vital Signs Date Time Temp Pulse Resp B/P (MAP) Pulse Ox O2 Delivery O2 Flow Rate FiO2 07/06/18 04:00 98.8 84 20 112/62 (79) 98 Room Air 07/06/18 00:00 99.2 84 18 112/66 (81) 97 Room Air 07/05/18 20:15 Room Air 07/05/18 19:35 99.3 88 20 129/64 (85) 98 Room Air 07/05/18 16:10 99.8 82 22 142/73 (96) 99 Room Air I & O 07/06/18 07:00 Intake Total 1910 ml Balance 1910 ml Capillary Refill : Less Than 3 Seconds General Appearance: No Apparent Distress, WD/WN HEENT: Pharynx Normal Neck: Full Range of Motion, Normal Inspection Respiratory: Chest Non Tender, Lungs Clear, No Accessory Muscle Use, No Respiratory Distress Cardiovascular: Regular Rate, Rhythm, No Murmur Gastrointestinal: soft, tenderness (mild with deep palpation in upper quadrants R>L) Neurologic/Psychiatric: Alert, Oriented x3, No Motor/Sensory Deficits, Normal Mood/Affect, machine washer II-XII Norm as Tested Results Lab Laboratory Tests 07/05/18 11:40: Stool Occult Blood Immunoassay POSITIVEH 07/06/18 06:05: White Blood Count 20.0H, Red Blood Count 3.96L, Hemoglobin 11.6, Hematocrit 34L , Mean Corpuscular Volume 87, Mean Corpuscular Hemoglobin 29, Mean Corpuscular Hemoglobin Concent 34, Red Cell Distribution Width 13.9, Platelet Count 345, Mean Platelet Volume 10.1, Neutrophils (%) (Auto) 83H, Lymphocytes (%) (Auto) 10L, Monocytes (%) (Auto) 6, Eosinophils (%) (Auto) 2, Basophils (%) (Auto) 0, Neutrophils # (Auto) 16.5H, Lymphocytes # (Auto) 1.9, Monocytes # (Auto) 1.2H, Eosinophils # (Auto) 0.3, Basophils # (Auto) 0.1, Sodium Level 138, Potassium Level 3.6, Chloride Level 112H, Carbon Dioxide Level 19L, Anion Gap 7, Blood Urea Nitrogen 2L, Creatinine 0.65, Estimat Glomerular Filtration Rate > 60, BUN/ Creatinine Ratio 3, Glucose Level 138H, Calcium Level 8.4L, Corrected Calcium 9.2, Total Bilirubin 0.2, Aspartate Amino Transf (AST/SGOT) 7, Alanine Aminotransferase (ALT/SGPT) 9, Alkaline Phosphatase 59, Total Protein 5.3L, Albumin 3.0L Microbiology 07/05/18 C. difficile GDH Antigen & Toxins - Final, Resulted 07/05/18 Stool Culture, Resulted Pending Assessment/Plan Assessment/Plan Assessment/Plan Colitis. Nausea and Diarrhea Leukocytosis improving. I thought the colitis looked like C. Diff, but previous one was negative; I sent fluid for a repeat. It definitely looked like a Pseudomembranous colitis. I will hold off on Oral Vancomycin for now and continue the Cipro and Flagyl. Will wait to see what pathology and cultures come back as. I did order an increase to soft diet. Clinical Quality Measures DVT/VTE Risk/Contraindication: Risk Factor Score Per Nursin RFS Level Per Nursing on Admit: 2=Moderate TONY DUNLAP DO Jul 06, 2018 11:30
[2018-07-06 12:00] VITALS: BP 129/68
[2018-07-06] MEDS ORDERED: LACTATED RINGERS 1,000 ML IV STA (13:13)
--- NOTE | 2018-07-06 14:03 | OPERATIVE REPORT ---
DATE OF SERVICE: PREOPERATIVE DIAGNOSES: Colitis, diarrhea. POSTOPERATIVE DIAGNOSES: Colitis, diarrhea, pending pathology. PROCEDURE: Colonoscopy with biopsy. SURGEON: Joseph Lucio DO. RESOURCE COORDINATOR: None. ANESTHESIA: IV sedation by the anesthesiologist. SPECIMEN: Biopsy from the descending colon as well as some washings from the transverse colon. BLOOD LOSS: Scant. FLUIDS: Per anesthesia. POSTOPERATIVE CONDITION: Stable. INDICATION FOR PROCEDURE: The patient is a 47-year-old female who has been having diarrhea for 6 weeks worse over the past two and started to have some severe pain with nausea and vomiting. FINDINGS: The patient had what looked like one area of whitish almost plaque or mass that was biopsied in the descending colon and then pseudomembranous colitis possibly C. diff in the transverse colon and some internal hemorrhoids. PROCEDURE NOTE: After informed consent was obtained, the patient was brought to the endoscopy suite and placed in the left lateral decubitus position. She was administered IV sedation by the anesthesiologist, who then monitored her vitals the entire time, heart rate, blood pressure and pulse ox, and the scope was inserted, pushed into the rectum and into the descending colon. In descending colon, we saw white almost mass or plaque, tried to flush this off with the broom bundler, but it did not move, so I then elected to biopsy this, got a good biopsy, continued up and then passed the splenic flexure into the transverse colon, encountered an area of very severe pseudomembranous colitis. There is some yellowish color into this, unsure whether this was C. diff or possibly just bile, picture of this was taken. The tissue was sloughing off with washing and so suctioned up a lot of this tissue and some of the fecal material around here to be sent to pathology for repeat C. diff as well as some cytology and pathological diagnosis of the tissue in there, had pushed all the way to about the hepatic flexure and just passed it, but it was starting to narrow and because it looked so friable, I did not want to create a hole, so stopped at this point, slowly backed out, back down the transverse colon to the splenic flexure, down the descending colon into the sigmoid. Retroflexion in rectal vault and saw some internal hemorrhoids, took a picture of this and then removed the scope. The patient tolerated the procedure and she was recovered in the endoscopy suite and then sent back up to her room. Job ID: [id number] DocumentID: [id number] Dictated Date: 07/06/2018 11:34:06 Writing Tutor Date: 07/06/2018 14:02:38 Dictated By: JOSEPH LUCIO DO
[2018-07-06] MEDS: fentaNYL INJECTION 100 MCG/2 ML AMP IVP PRN (14:14)
[2018-07-06 16:15] VITALS: BP 125/72
[2018-07-06 19:35] VITALS: BP 140/77
[2018-07-06] MEDS: POLYETHYLENE GLYCOL 17 GM (MIRALAX) PACK PO SCH (20:56)
[2018-07-07] VITALS: BP 115/61
[2018-07-07] MEDS: D5 1/2 NS W/KCL 20 MEQ/L 1,000 ML IV SCH ×3 (01:48→21:05)
[2018-07-07 04:00] VITALS: BP 117/68
[2018-07-07 04:41] LABS: BASOPHILS # (AUTO) 0.1 10^3/uL (0.0-0.1); BASOPHILS % (AUTO) 1 % (0-10); EOSINOPHILS # (AUTO) 0.5 10^3/uL (0.0-0.3); EOSINOPHILS % (AUTO) 5 % (0-10); HEMATOCRIT 31 % (35-52); HEMOGLOBIN 10.9 G/DL (11.5-16.0); LYMPHOCYTES # (AUTO) 2.5 X 10^3 (1.0-4.0); LYMPHOCYTES % (AUTO) 22 % (12-44); MEAN CORPUSCULAR HEMOGLOBIN 30 PG (25-34); MEAN CORPUSCULAR HGB CONC 35 G/DL (32-36); MEAN CORPUSCULAR VOLUME 87 FL (80-99); MEAN PLATELET VOLUME 9.9 FL (7.4-10.4); MONOCYTES # (AUTO) 0.8 X 10^3 (0.0-1.0); MONOCYTES % (AUTO) 7 % (0-12); NEUTROPHILS # (AUTO) 7.5 X 10^3 (1.8-7.8); NEUTROPHILS % (AUTO) 66 % (42-75); PLATELET COUNT 339 10^3/uL (130-400); RED BLOOD COUNT 3.59 10^6/uL (4.35-5.85); RED CELL DISTRIBUTION WIDTH 13.6 % (10.0-14.5); WHITE BLOOD COUNT 11.4 10^3/uL (4.3-11.0)
[2018-07-07 05:03] LABS: ALANINE AMINOTRANSFERASE 7 U/L (0-55); ALBUMIN 2.8 GM/DL (3.2-4.5); ALKALINE PHOSPHATASE 51 U/L (40-136); BILIRUBIN,TOTAL 0.2 MG/DL (0.1-1.0); BUN/CREATININE RATIO 3; CALCIUM 8.2 MG/DL (8.5-10.1); CARBON DIOXIDE 19 MMOL/L (21-32); CHLORIDE 113 MMOL/L (98-107); CREATININE SERUM 0.62 MG/DL (0.60-1.30); GFR ESTIMATED > 60; GLUCOSE 113 MG/DL (70-105); POTASSIUM 3.6 MMOL/L (3.6-5.0); SODIUM 139 MMOL/L (135-145); TOTAL PROTEIN 4.8 GM/DL (6.4-8.2)
[2018-07-07] MEDS: metroNIDAZOLE 500 MG/100 ML IVPB (PRE-MIX) IV SCH ×3 (05:03→22:43)
[2018-07-07] MEDS: fentaNYL INJECTION 100 MCG/2 ML AMP IVP PRN (05:06)
[2018-07-07 08:00] VITALS: BP 113/65
[2018-07-07] MEDS: CIPROFLOXACIN 400 MG/D5W 200 ML (PRE-MIX) IV SCH ×2 (10:26→21:05)
--- NOTE | 2018-07-07 11:58 | Progress Note ---
Subjective Date Seen by a Provider: Jul 07, 2018 Time Seen by a Provider: 11:55 Subjective/Events-last exam Patient feeling better today. Still having some diarrhea. No abdominal pain just slight discomfort. Tolerating liquids and starting to advance diet. Denies nausea vomiting fever sweats chills shortness of breath or chest pain at this time. Focused Exam Lactate Level 07/05/18 10:17: Lactic Acid Level 1.05 Objective Exam Vital Signs Date Time Temp Pulse Resp B/P (MAP) Pulse Ox O2 Delivery O2 Flow Rate FiO2 07/07/18 08:00 98.2 89 24 113/65 (81) 98 Room Air 07/07/18 04:00 98.1 81 18 117/68 (84) 97 Room Air 07/07/18 00:00 98.1 85 16 115/61 (79) 98 Room Air 07/06/18 19:35 99.1 78 18 140/77 (98) 98 Room Air 07/06/18 16:15 98.6 74 16 125/72 (89) 99 Room Air 07/06/18 12:00 97.5 72 20 129/68 (88) 99 Room Air I & O 07/07/18 07:00 Intake Total 3980 ml Balance 3980 ml Capillary Refill : Less Than 3 Seconds General Appearance: No Apparent Distress, WD/WN HEENT: Pharynx Normal Neck: Full Range of Motion, Normal Inspection Respiratory: Chest Non Tender, Lungs Clear, No Accessory Muscle Use, No Respiratory Distress Cardiovascular: Regular Rate, Rhythm, No Murmur Gastrointestinal: soft, tenderness (Minimal discomfort with palpation) Extremity: Non Tender Neurologic/Psychiatric: Alert, Oriented x3, No Motor/Sensory Deficits, Normal Mood/Affect, accounts receivable representative II-XII Norm as Tested Skin: Warm/Dry Lymphatic: No Adenopathy Results Lab Laboratory Tests 07/07/18 04:15: White Blood Count 11.4H, Red Blood Count 3.59L, Hemoglobin 10.9L, Hematocrit 31L , Mean Corpuscular Volume 87, Mean Corpuscular Hemoglobin 30, Mean Corpuscular Hemoglobin Concent 35, Red Cell Distribution Width 13.6, Platelet Count 339, Mean Platelet Volume 9.9, Neutrophils (%) (Auto) 66, Lymphocytes (%) (Auto) 22, Monocytes (%) (Auto) 7, Eosinophils (%) (Auto) 5, Basophils (%) (Auto) 1, Neutrophils # (Auto) 7.5, Lymphocytes # (Auto) 2.5, Monocytes # (Auto) 0.8, Eosinophils # (Auto) 0.5H, Basophils # (Auto) 0.1, Sodium Level 139, Potassium Level 3.6, Chloride Level 113H, Carbon Dioxide Level 19L, Anion Gap 7, Blood Urea Nitrogen 2L, Creatinine 0.62, Estimat Glomerular Filtration Rate > 60, BUN/ Creatinine Ratio 3, Glucose Level 113H, Calcium Level 8.2L, Corrected Calcium 9.2, Total Bilirubin 0.2, Aspartate Amino Transf (AST/SGOT) 6, Alanine Aminotransferase (ALT/SGPT) 7, Alkaline Phosphatase 51, Total Protein 4.8L, Albumin 2.8L Microbiology 07/05/18 Blood Culture - Preliminary, Resulted No growth 07/06/18 C. difficile DNA Amplification - Final, Complete Assessment/Plan Assessment/Plan Assessment/Plan Colitis. Nausea and Diarrhea Leukocytosis improving. Patient feeling better. Diet as tolerates. Continue current medical management. Cultures of stool still pending No surgical intervention at this time. Will follow Clinical Quality Measures DVT/VTE Risk/Contraindication: Risk Factor Score Per Nursin RFS Level Per Nursing on Admit: 2=Moderate YANETH DOMINGUEZ DO Jul 07, 2018 11:58
--- NOTE | 2018-07-07 12:27 | Progress Note-Hospitalist ---
Subjective HPI/CC On Admission Date Seen by Provider: Jul 07, 2018 Time Seen by Provider: 11:30 Subjective/Events-last exam Patient reports she is doing much better No pain is reported Checked meds and labs Advancing diet Review of Systems General: Fatigue Gastrointestinal: Diarrhea Focused Exam Lactate Level 07/05/18 10:17: Lactic Acid Level 1.05 Objective Exam Vital Signs Vital Signs Date Time Temp Pulse Resp B/P (MAP) Pulse Ox O2 Delivery O2 Flow Rate FiO2 07/07/18 08:00 98.2 89 24 113/65 (81) 98 Room Air Capillary Refill : Less Than 3 Seconds General Appearance: No Apparent Distress, WD/WN, Chronically ill, Thin Respiratory: Chest Non Tender, Lungs Clear, Normal Breath Sounds, No Accessory Muscle Use, No Respiratory Distress Cardiovascular: Regular Rate, Rhythm, No Edema, No Gallop, No JVD, No Murmur, Normal Peripheral Pulses Gastrointestinal: Soft Neurologic/Psychiatric: Alert, Oriented x3, No Motor/Sensory Deficits, Normal Mood/Affect Results/Procedures Lab Laboratory Tests 07/07/18 04:15 Patient resulted labs reviewed. Assessment/Plan Assessment and Plan Assess & Plan/Chief Complaint Assessment: Colitis acute Abdominal pain Leukocytosis Plan: Advance diet Abx coverage Diagnosis/Problems Diagnosis/Problems (1) Colitis Status: Acute (2) Sepsis Status: Resolved Qualifiers: Sepsis type: sepsis due to unspecified organism Qualified Codes: A41.9 - Sepsis, unspecified organism (3) Nausea and vomiting Status: Resolved Qualifiers: Vomiting type: unspecified Vomiting Intractability: non-intractable Qualified Codes: R11.2 - Nausea with vomiting, unspecified (4) Abdominal pain Status: Acute Qualifiers: Abdominal location: unspecified location Qualified Codes: R10.9 - Unspecified abdominal pain Clinical Quality Measures DVT/VTE Risk/Contraindication: Risk Factor Score Per Nursin RFS Level Per Nursing on Admit: 2=Moderate BRENDA FRANCOIS DO Jul 07, 2018 12:27
[2018-07-07 16:55] VITALS: BP 144/87
[2018-07-07] MEDS: POLYETHYLENE GLYCOL 17 GM (MIRALAX) PACK PO SCH (20:54)
[2018-07-08] VITALS: BP 121/78
[2018-07-08 03:56] LABS: BASOPHILS # (AUTO) 0.1 10^3/uL (0.0-0.1); BASOPHILS % (AUTO) 1 % (0-10); EOSINOPHILS # (AUTO) 0.5 10^3/uL (0.0-0.3); EOSINOPHILS % (AUTO) 6 % (0-10); HEMATOCRIT 32 % (35-52); HEMOGLOBIN 10.5 G/DL (11.5-16.0); LYMPHOCYTES # (AUTO) 2.3 X 10^3 (1.0-4.0); LYMPHOCYTES % (AUTO) 29 % (12-44); MEAN CORPUSCULAR HEMOGLOBIN 29 PG (25-34); MEAN CORPUSCULAR HGB CONC 33 G/DL (32-36); MEAN CORPUSCULAR VOLUME 88 FL (80-99); MEAN PLATELET VOLUME 10.1 FL (7.4-10.4); MONOCYTES # (AUTO) 0.6 X 10^3 (0.0-1.0); MONOCYTES % (AUTO) 7 % (0-12); NEUTROPHILS # (AUTO) 4.5 X 10^3 (1.8-7.8); NEUTROPHILS % (AUTO) 57 % (42-75); PLATELET COUNT 374 10^3/uL (130-400); RED BLOOD COUNT 3.61 10^6/uL (4.35-5.85); RED CELL DISTRIBUTION WIDTH 13.7 % (10.0-14.5); WHITE BLOOD COUNT 7.9 10^3/uL (4.3-11.0)
[2018-07-08 04:09] LABS: ALANINE AMINOTRANSFERASE 9 U/L (0-55); ALBUMIN 2.8 GM/DL (3.2-4.5); ALKALINE PHOSPHATASE 42 U/L (40-136); BILIRUBIN,TOTAL 0.1 MG/DL (0.1-1.0); BUN/CREATININE RATIO 3; CARBON DIOXIDE 20 MMOL/L (21-32); CHLORIDE 113 MMOL/L (98-107); CREATININE SERUM 0.65 MG/DL (0.60-1.30); GFR ESTIMATED > 60; GLUCOSE 117 MG/DL (70-105); POTASSIUM 3.8 MMOL/L (3.6-5.0); SODIUM 139 MMOL/L (135-145); TOTAL PROTEIN 4.7 GM/DL (6.4-8.2)
[2018-07-08] MEDS: metroNIDAZOLE 500 MG/100 ML IVPB (PRE-MIX) IV SCH (06:10)
[2018-07-08] MEDS: D5 1/2 NS W/KCL 20 MEQ/L 1,000 ML IV SCH ×2 (06:37→07:52)
[2018-07-08 08:00] VITALS: BP 133/86
[2018-07-08] MEDS: CIPROFLOXACIN 400 MG/D5W 200 ML (PRE-MIX) IV SCH (10:11)
[2018-07-08] MEDS ORDERED: METR500T PO (12:12)
[2018-07-08] MEDS ORDERED: ONDA8TAB9 SL (12:12)
[2018-07-08] MEDS ORDERED: CIPR500T4 PO (12:12)
--- NOTE | 2018-07-08 12:13 | Discharge Summary-Hospitalist ---
Diagnosis/Chief Complaint Date of Admission Jul 05, 2018 at 10:48 Date of Discharge Discharge Date: Jul 08, 2018 Discharge Diagnosis (1) Colitis Status: Acute (2) Sepsis Status: Resolved (3) Nausea and vomiting Status: Resolved (4) Abdominal pain Status: Resolved Discharge Summary Discharge Physical Exam Allergies: Coded Allergies: No Known Drug Allergies (Unverified , 07/05/18) Vitals & I&Os Vital Signs Date Time Temp Pulse Resp B/P (MAP) Pulse Ox O2 Delivery O2 Flow Rate FiO2 07/08/18 08:00 96.9 77 22 133/86 (102) 100 Room Air General Appearance: No Apparent Distress, WD/WN Respiratory: Chest Non Tender, Lungs Clear, Normal Breath Sounds, No Accessory Muscle Use, No Respiratory Distress Cardiovascular: Regular Rate, Rhythm, No Edema, No Gallop, No JVD, No Murmur, Normal Peripheral Pulses Gastrointestinal: Normal Bowel Sounds, No Organomegaly, No Pulsatile Mass, Non Tender, Soft Neurologic/Psychiatric: Alert, Oriented x3, No Motor/Sensory Deficits, Normal Mood/Affect Hospital Course Hospital course: Patient was admitted for presumed colitis with sepsis and normal lactic acid and elevated white count. Patient was placed on IV fluids and empiric antibiotics. Dr. Lucio performed colonoscopy revealing likely diverticulitis rather than C. difficile colitis. Pain was controlled and patient responded quickly to aggressive treatment. On day of discharge patient denied any abdominal pain no nausea or vomiting and overall improved enough for discharge. Labs (last 24 hrs) Laboratory Tests 07/08/18 03:30: White Blood Count 7.9, Red Blood Count 3.61L, Hemoglobin 10.5L, Hematocrit 32L, Mean Corpuscular Volume 88, Mean Corpuscular Hemoglobin 29, Mean Corpuscular Hemoglobin Concent 33, Red Cell Distribution Width 13.7, Platelet Count 374, Mean Platelet Volume 10.1, Neutrophils (%) (Auto) 57, Lymphocytes (%) (Auto) 29 , Monocytes (%) (Auto) 7, Eosinophils (%) (Auto) 6, Basophils (%) (Auto) 1, Neutrophils # (Auto) 4.5, Lymphocytes # (Auto) 2.3, Monocytes # (Auto) 0.6, Eosinophils # (Auto) 0.5H, Basophils # (Auto) 0.1, Sodium Level 139, Potassium Level 3.8, Chloride Level 113H, Carbon Dioxide Level 20L, Anion Gap 6, Blood Urea Nitrogen 2L, Creatinine 0.65, Estimat Glomerular Filtration Rate > 60, BUN/ Creatinine Ratio 3, Glucose Level 117H, Calcium Level 8.0L, Corrected Calcium 9.0, Total Bilirubin 0.1, Aspartate Amino Transf (AST/SGOT) 8, Alanine Aminotransferase (ALT/SGPT) 9, Alkaline Phosphatase 42, Total Protein 4.7L, Albumin 2.8L Microbiology 07/05/18 Blood Culture - Preliminary, Resulted No growth 07/06/18 C. difficile DNA Amplification - Final, Complete Patient resulted labs reviewed. Discussion & Recommendations Discharge Planning: <30 minutes discharge planning Discharge Home Medications: Active Scripts Active Flagyl (Metronidazole) 500 Mg Tablet 500 Mg PO TID Ciprofloxacin HCl 500 Mg Tablet 500 Mg PO BID Zofran Odt (Ondansetron) 8 Mg Tab.rapdis 8 Mg SL Q4H PRN Reported Gas-X (Simethicone) 125 Mg Tab.chew 125 Mg PO TID PRN Advil (Ibuprofen) 200 Mg Tablet 200 Mg PO Q6H PRN Tylenol (Acetaminophen) 325 Mg Tablet 325 Mg PO Q4H PRN Instructions to patient/family Please see electronic discharge instructions given to patient. Clinical Quality Measures DVT/VTE Risk/Contraindication: Risk Factor Score Per Nursin RFS Level Per Nursing on Admit: 2=Moderate Problem Qualifiers (1) Sepsis: Sepsis type: sepsis due to unspecified organism Qualified Codes: A41.9 - Sepsis, unspecified organism (2) Nausea and vomiting: Vomiting type: unspecified Vomiting Intractability: non-intractable Qualified Codes: R11.2 - Nausea with vomiting, unspecified (3) Abdominal pain: Abdominal location: unspecified location Qualified Codes: R10.9 - Unspecified abdominal pain BRENDA FRANCOIS DO Jul 08, 2018 12:13
--- NOTE | 2018-07-08 13:02 | Progress Note ---
Subjective Date Seen by a Provider: Jul 08, 2018 Time Seen by a Provider: 12:57 Subjective/Events-last exam Patient a significant better. She's tolerating diet. She's not having any dominant pain. Owing to go home. Denies any nausea vomiting fever sweats chills shortness of breath or chest pain. White blood cell count normal. Objective Exam Vital Signs Date Time Temp Pulse Resp B/P (MAP) Pulse Ox O2 Delivery O2 Flow Rate FiO2 07/08/18 08:00 96.9 77 22 133/86 (102) 100 Room Air 07/08/18 00:00 97.2 83 18 121/78 (92) 98 Room Air 07/07/18 16:55 97.3 69 18 144/87 (106) 100 Room Air I & O 07/08/18 07:00 Intake Total 4930 ml Balance 4930 ml Capillary Refill : Less Than 3 Seconds General Appearance: No Apparent Distress, WD/WN HEENT: Pharynx Normal Neck: Full Range of Motion, Normal Inspection Respiratory: Chest Non Tender, Lungs Clear, Normal Breath Sounds, No Accessory Muscle Use, No Respiratory Distress Cardiovascular: Regular Rate, Rhythm, No Edema, No Gallop, No JVD, No Murmur, Normal Peripheral Pulses Gastrointestinal: non tender, soft; No guarding, No rebound Extremity: Non Tender Neurologic/Psychiatric: Alert, Oriented x3, No Motor/Sensory Deficits, Normal Mood/Affect Skin: Warm/Dry Lymphatic: No Adenopathy Results Lab Laboratory Tests 07/08/18 03:30: White Blood Count 7.9, Red Blood Count 3.61L, Hemoglobin 10.5L, Hematocrit 32L, Mean Corpuscular Volume 88, Mean Corpuscular Hemoglobin 29, Mean Corpuscular Hemoglobin Concent 33, Red Cell Distribution Width 13.7, Platelet Count 374, Mean Platelet Volume 10.1, Neutrophils (%) (Auto) 57, Lymphocytes (%) (Auto) 29 , Monocytes (%) (Auto) 7, Eosinophils (%) (Auto) 6, Basophils (%) (Auto) 1, Neutrophils # (Auto) 4.5, Lymphocytes # (Auto) 2.3, Monocytes # (Auto) 0.6, Eosinophils # (Auto) 0.5H, Basophils # (Auto) 0.1, Sodium Level 139, Potassium Level 3.8, Chloride Level 113H, Carbon Dioxide Level 20L, Anion Gap 6, Blood Urea Nitrogen 2L, Creatinine 0.65, Estimat Glomerular Filtration Rate > 60, BUN/ Creatinine Ratio 3, Glucose Level 117H, Calcium Level 8.0L, Corrected Calcium 9.0, Total Bilirubin 0.1, Aspartate Amino Transf (AST/SGOT) 8, Alanine Aminotransferase (ALT/SGPT) 9, Alkaline Phosphatase 42, Total Protein 4.7L, Albumin 2.8L Microbiology 07/05/18 Blood Culture - Preliminary, Resulted No growth 07/06/18 C. difficile DNA Amplification - Final, Complete Assessment/Plan Assessment/Plan Assessment/Plan Colitis. Nausea and Diarrhea Leukocytosis improved Patient feeling better. Tolerating diet. Okay to DC home on Cipro and Flagyl No surgical intervention. Outpatient follow-up. Patient agrees with plan. Clinical Quality Measures DVT/VTE Risk/Contraindication: Risk Factor Score Per Nursin RFS Level Per Nursing on Admit: 2=Moderate YANETH DOMINGUEZ DO Jul 08, 2018 13:02
[2018-07-08 13:55] VITALS: BP 133/86
== END 2018-07-08 13:55 | disposition home or self-care (01) | DRG 872 ==
LOC: EDUNIT# 07:38 → ER 07:39 → 4TH 10:48
PROVIDERS: ADMIT Family Medicine; ATTEND Family Medicine
PROC: 0DBM8ZX Excision of Descending Colon, Via Natural or Artificial Opening Endoscopic, Diagnostic (ICD-10-PCS; principal; 2018-07-06 08:33)
DX: A41.9 Sepsis, unspecified organism (principal); K52.9 Noninfective gastroenteritis and colitis, unspecified; R63.4 Abnormal weight loss; F17.200 Nicotine dependence, unspecified, uncomplicated; K64.8 Other hemorrhoids
CPT/HCPCS: 36415; 74177; 80053; 81000; 82274; 83605; 83690; 84703; 85007; 85025; 85027; 87040; 87045; 87046; 87324; 87328; 87329; 87449; 87493; 88112; 88305

== ENCOUNTER → 2021-04-28 | Outpatient (CLI) | payer SELFPAY ==
[~2021-04-28] MED LIST: ACET325T38 PO; CIPR500T5 PO; HOLD METFORMIN - RECEIVED CONTRAST 20 ML VIAL IV SCH; IBUP-30 PO; IOHEXOL 350 MG/ML 100 ML (OMNIPAQUE 350) VIAL IV ONE; METR500T PO; NS 100 ML (IVPB) BAG IV ONE; ONDA8TAB9 SL; SIME125T PO
[2021-04-28 08:54] LABS: ALBUMIN 4.3 GM/DL (3.2-4.5); BILIRUBIN,TOTAL 0.4 MG/DL (0.1-1.0); CALCIUM 9.4 MG/DL (8.5-10.1); CREATININE SERUM 0.94 MG/DL (0.60-1.30)
--- NOTE | 2021-04-28 10:17 | Diagnostic Imaging Report ---
EXAMINATION: CT abdomen and pelvis with intravenous contrast. TECHNIQUE: Multiple contiguous axial images were obtained through the abdomen and pelvis after the uneventful administration of intravenous contrast. All CT scans use one or more of the following dose optimizing techniques: automated exposure control, MA and/or KvP adjustment based on patient size and exam type or iterative reconstruction. HISTORY: History of diverticulitis. Abdominal pain. COMPARISON: 07/05/2018. FINDINGS: The heart is unremarkable. The included lung bases are clear. Scattered areas of cortical thinning are seen in the right kidney with generalized atrophy of the right kidney relative to the left. No evidence of acute hydronephrosis. No solid renal masses are seen. No perinephric fat stranding. The liver, spleen, pancreas, and adrenal glands have a normal appearance. There is no pathologically enlarged mesenteric or retroperitoneal adenopathy. The bowel loops are nondilated. The appendix is visualized in the right lower quadrant and has a normal appearance. Liquid stool is seen throughout the colon. A few scattered diverticula are present in the sigmoid colon without evidence of acute diverticulitis. There is no free fluid or free air. No acute osseous abnormalities. There is calcified aortic atherosclerotic plaque without evidence of aneurysm. The urinary bladder is nondistended. There is no free air, loculated collection, or adenopathy in the pelvis. IMPRESSION: 1. Liquid stool throughout the colon, which may suggest diarrhea and nonspecific colitis. No findings to suggest acute diverticulitis. No bowel obstruction, free fluid, or free air. 2. Scattered areas of cortical thinning in the right kidney with generalized atrophy of the right kidney relative to the left. This is similar to the prior exam and likely represents sequelae of prior infection or inflammation. Dictated by: Dictated on workstation # [id number]
== END ==
LOC: RAD 08:25
PROVIDERS: ATTEND Pediatrics
DX: K57.92 Diverticulitis of intestine, part unspecified, without perforation or abscess without bleeding (principal)
CPT/HCPCS: 36415; 74177; 80053

== ENCOUNTER 2023-05-23 13:44 | Emergency (ER) | payer BC ==
[~2023-05-23] VITALS: Ht 162 cm; Wt 72.0 kg
[~2023-05-23 13:44] MED LIST changes: -HOLD METFORMIN - RECEIVED CONTRAST 20 ML VIAL IV SCH; -IOHEXOL 350 MG/ML 100 ML (OMNIPAQUE 350) VIAL IV ONE; -NS 100 ML (IVPB) BAG IV ONE
[2023-05-23] MEDS ORDERED: fentaNYL INJECTION 100 MCG/2 ML VIAL IVP STA (14:05)
[2023-05-23] MEDS ORDERED: NS IV 1000 ML 1,000 ML IV STA (14:05)
[2023-05-23 14:13] LABS: BASOPHILS # (AUTO) 0.1 10^3/uL (0.0-0.1); BASOPHILS % (AUTO) 1 % (0-10); EOSINOPHILS # (AUTO) 0.2 10^3/uL (0.0-0.3); EOSINOPHILS % (AUTO) 2 % (0-10); HEMATOCRIT 43 % (35-52); HEMOGLOBIN 14.4 g/dL (11.5-16.0); LYMPHOCYTES # (AUTO) 2.1 10^3/uL (1.0-4.0); LYMPHOCYTES % (AUTO) 23 % (12-44); MEAN CORPUSCULAR HEMOGLOBIN 29 pg (25-34); MEAN CORPUSCULAR HGB CONC 33 g/dL (32-36); MEAN CORPUSCULAR VOLUME 87 fL (80-99); MEAN PLATELET VOLUME 9.7 fL (9.0-12.2); MONOCYTES # (AUTO) 0.6 10^3/uL (0.0-1.0); MONOCYTES % (AUTO) 7 % (0-12); NEUTROPHILS % (AUTO) 66 % (42-75); PLATELET COUNT 294 10^3/uL (130-400)
[2023-05-23] MEDS ORDERED: ONDANSETRON INJECTION 4 MG/2 ML (SDV) IVP ONE (14:15)
[2023-05-23 14:31] LABS: ALBUMIN 4.4 GM/DL (3.2-4.5); POTASSIUM 4.3 MMOL/L (3.6-5.0)
[2023-05-23 14:33] LABS: CALCIUM 9.7 MG/DL (8.5-10.1)
[2023-05-23 14:34] LABS: TOTAL PROTEIN 7.1 GM/DL (6.4-8.2)
[2023-05-23 14:35] LABS: BILIRUBIN,TOTAL 0.3 MG/DL (0.1-1.0)
[2023-05-23 14:38] LABS: CREATININE SERUM 1.03 MG/DL (0.60-1.30)
--- NOTE | 2023-05-23 14:39 | ED General ---
General Chief Complaint: Abdominal/GI Problems Stated Complaint: KIDNEY PAIN | ABD PAIN | NAUSEA Nursing Triage Note: PT AMB TO RM 6 PT CO OF R FLANK AND R LOWER ABD PAIN RATES PAIN /10. PT ALSO CO OF NAUSEA.PT STATES STARTED ON APPROX WEEK AGO, PT WENT TO [facility] ON MONDAY. PT WAS GIVEN SHOT OF TORADOL. Source of Information: Patient Exam Limitations: No Limitations History of Present Illness Date Seen by Provider: May 23, 2023 Time Seen by Provider: 13:58 Initial Comments Patient here with report of right flank and low back pain as well as right lower quadrant abdominal pain that has been going on for about a week. She was seen at the clinic on Monday and given a shot of Toradol which did help a little bit. It was noted that she had blood in her urine at the time and there is consideration for kidney stone. Patient states that she has history of previous stone that passed on its own without difficulty but also has history of ulcer ative colitis and diverticulitis as well. Denies notable blood in her urine. She still occasionally passes mucousy stool that has a little blood. This is not uncommon and not out of character for her and not worse than typical. Denies fever or chills. Denies vomiting but does have some nausea with the pain. Denies rash or lesions. Denies upper respiratory symptoms. Timing/Duration: 1 Week, Getting Worse Severity: Moderate Associated Systoms: No Fever/Chills, No Shortness of Air Allergies and Home Medications Allergies Coded Allergies: No Known Drug Allergies (Unverified , 07/05/18) Patient Home Medication List Home Medication List Reviewed: Yes Acetaminophen (Tylenol) 325 Mg Tablet, 325 MG PO Q4H PRN for PAIN-MILD, (Reported) Entered as Reported by: TRACEE BRADLEY on 07/05/18 1308 Ciprofloxacin HCl (Ciprofloxacin HCl) 500 Mg Tablet, 500 MG PO BID Prescribed by: BRENDA FRANCOIS on 07/08/18 1212 Ibuprofen (Advil) 200 Mg Tablet, 200 MG PO Q6H PRN for PAIN-MILD, (Reported) Entered as Reported by: TRACEE BRADLEY on 07/05/18 1308 Metronidazole (Flagyl) 500 Mg Tablet, 500 MG PO TID Prescribed by: BRENDA FRANCOIS on 07/08/18 1212 Ondansetron (Zofran Odt) 8 Mg Tab.rapdis, 8 MG SL Q4H PRN for NAUSEA/VOMITING-1ST LINE Prescribed by: BRENDA FRANCOIS on 07/08/18 1212 Simethicone (Gas-X) 125 Mg Tab.chew, 125 MG PO TID PRN for GAS, (Reported) Entered as Reported by: TRACEE BRADLEY on 07/05/18 1308 Review of Systems Review of Systems Constitutional: see HPI; No chills, No fever EENTM: no symptoms reported Respiratory: No cough, No short of breath Cardiovascular: No chest pain Gastrointestinal: No diarrhea; nausea; No vomiting Genitourinary: see HPI : No Musculoskeletal: back pain, muscle pain Skin: No change in color, No lesions Past Rjbkjje-Avaqcd-Wqqruv Hx Patient Social History Tobacco Use?: Yes Tobacco type used: Cigarettes Smoking Status: Current Everyday Smoker Substance use?: No Alcohol Use?: Yes Alcohol Frequency: Rarely Pt feels they are or have been: No Immunizations Up To Date First/Initial COVID19 Vaccinat: YES Second COVID19 Vaccination Brandon: YES Past Medical History Surgery/Hospitalization HX: , COLONOSCOPY, ANXIETY AND DEPRESSION, ELEVATED CHOLESTEROL, HTN Surgeries: Yes Section Respiratory: No Cardiac: No Neurological: No Genitourinary: No Gastrointestinal: No Musculoskeletal: No Endocrine: No HEENT: No Cancer: No Psychosocial: No Integumentary: No Blood Disorders: No Adverse Reaction/Blood Tranf: No Family Medical History Reviewed Nursing Family Hx Colon cancer Myocardial infarction Psychosocial problem Seizure disorder Cancer Physical Exam Vital Signs Vital Signs - First Documented 05/23/23 13:50 Pulse 81 Resp 18 B/P (MAP) 140/91 (107) Pulse Ox 98 Capillary Refill : Less Than 3 Seconds Height, Weight, BMI Height: 5'4.00" Weight: 140lbs. 0.0oz. 63.405457dw; 27.00 BMI Method:Stated General Appearance: No Apparent Distress, WD/WN HEENT: PERRL/EOMI, Pharynx Normal Neck: Non Tender, Supple Respiratory: Lungs Clear, Normal Breath Sounds Cardiovascular: Regular Rate, Rhythm, No Murmur Gastrointestinal: Soft; No Guarding, No Mass, No Rebound; Tenderness (Mild right lower quadrant without rebound or guarding and mild right flank. Otherwise nontender) Back: No CVA Tenderness (L), No CVA Tenderness (R), No Muscle Spasm; Other (Mild tenderness to the right low back at the area of the SI joint) Extremity: Normal Range of Motion, Non Tender, No Calf Tenderness Neurologic/Psychiatric: Alert, Oriented x3 Skin: Normal Color, Warm/Dry Progress/Results/Core Measures Suspected Sepsis SIRS Temperature: Pulse: 81 Respiratory Rate: 18 Laboratory Tests 05/23/23 14:00: White Blood Count 9.0 Blood Pressure 140 /91 Mean: 107 Laboratory Tests 05/23/23 14:00: Creatinine 1.03, Platelet Count 294, Total Bilirubin 0.3 Results/Orders Lab Results Laboratory Tests Test 05/23/23 14:00 05/23/23 15:00 Range/Units White Blood Count 9.0 4.3-11.0 10^3/uL Red Blood Count 4.95 3.80-5.11 10^6/uL Hemoglobin 14.4 11.5-16.0 g/dL Hematocrit 43 35-52 % Mean Corpuscular Volume 87 80-99 fL Mean Corpuscular Hemoglobin 29 25-34 pg Mean Corpuscular Hemoglobin Concent 33 32-36 g/dL Red Cell Distribution Width 14.1 10.0-14.5 % Platelet Count 294 130-400 10^3/uL Mean Platelet Volume 9.7 9.0-12.2 fL Immature Granulocyte % (Auto) 0 % Neutrophils (%) (Auto) 66 42-75 % Lymphocytes (%) (Auto) 23 12-44 % Monocytes (%) (Auto) 7 0-12 % Eosinophils (%) (Auto) 2 0-10 % Basophils (%) (Auto) 1 0-10 % Neutrophils # (Auto) 6.0 1.8-7.8 10^3/uL Lymphocytes # (Auto) 2.1 1.0-4.0 10^3/uL Monocytes # (Auto) 0.6 0.0-1.0 10^3/uL Eosinophils # (Auto) 0.2 0.0-0.3 10^3/uL Basophils # (Auto) 0.1 0.0-0.1 10^3/uL Immature Granulocyte # (Auto) 0.0 0.0-0.1 10^3/uL Sodium Level 142 135-145 MMOL/L Potassium Level 4.3 3.6-5.0 MMOL/L Chloride Level 108 H 98-107 MMOL/L Carbon Dioxide Level 23 21-32 MMOL/L Anion Gap 11 5-14 MMOL/L Blood Urea Nitrogen 10 7-18 MG/DL Creatinine 1.03 0.60-1.30 MG/DL Estimat Glomerular Filtration Rate 65 BUN/Creatinine Ratio 10 Glucose Level 86 70-105 MG/DL Calcium Level 9.7 8.5-10.1 MG/DL Corrected Calcium 9.4 8.5-10.1 MG/DL Total Bilirubin 0.3 0.1-1.0 MG/DL Aspartate Amino Transf (AST/SGOT) 19 5-34 U/L Alanine Aminotransferase (ALT/SGPT) 29 0-55 U/L Alkaline Phosphatase 86 40-136 U/L C-Reactive Protein High Sensitivity 0.16 0.00-0.50 MG/DL Total Protein 7.1 6.4-8.2 GM/DL Albumin 4.4 3.2-4.5 GM/DL Urine Color YELLOW Urine Clarity CLEAR Urine pH 5.5 5-9 Urine Specific [place] <=1.005 1.016-1.022 Urine Protein NEGATIVE NEGATIVE Urine Glucose (UA) NEGATIVE NEGATIVE Urine Ketones NEGATIVE NEGATIVE Urine Nitrite NEGATIVE NEGATIVE Urine Bilirubin NEGATIVE NEGATIVE Urine Urobilinogen 0.2 < = 1.0 MG/DL Urine Leukocyte Esterase NEGATIVE NEGATIVE Urine RBC (Auto) TRACE H NEGATIVE Urine RBC NONE /HPF Urine WBC NONE /HPF Urine Squamous Epithelial Cells 2-5 /HPF Urine Crystals NONE /LPF Urine Bacteria NEGATIVE /HPF Urine Casts NONE /LPF Urine Mucus NEGATIVE /LPF Urine Culture Indicated NO My Orders Orders - BETHANY FIGUEROA MD Ondansetron Injection (Zofran Injectio (05/23/23 14:15) Ns Iv 1000 Ml (Sodium Chloride 0.9%) (05/23/23 14:05) Ed Iv/Invasive Line Start (05/23/23 14:05) Fentanyl Injection (Fentanyl Injection (05/23/23 14:05) Cbc With Automated Diff (05/23/23 14:05) Comprehensive Metabolic Panel (05/23/23 14:05) Hs C Reactive Protein (05/23/23 14:05) Ua Culture If Indicated (05/23/23 14:05) Ct Abd/Pelvis Wo(Kidney Stone) (05/23/23 14:56) Medications Given in ED Current Medications Medications Dose Ordered Sig/Andrea Route Start Time Stop Time Status Last Admin Dose Admin Ondansetron HCl 4 mg ONCE ONCE IVP 05/23/23 14:15 05/23/23 14:16 DC 05/23/23 14:16 4 MG Vital Signs/I&O 05/23/23 13:50 Pulse 81 Resp 18 B/P (MAP) 140/91 (107) Pulse Ox 98 Capillary Refill : Less Than 3 Seconds Blood Pressure Mean: 107 Progress Note : Progress Note Seen and evaluated. IV, labs including CBC, CMP, CRP and UA ordered. Normal saline 1 L bolus, Zofran 4 mg IV and fentanyl 50 mcg IV ordered. Monitor pat ient. Differential diagnosis includes UTI, urinary stone, appendicitis, ulcerative colitis, diverticulitis, bowel perforation, musculoskeletal strain 1439: CBC normal. CMP pending and UA still needs to be collected. Anticipate CT abdomen and pelvis and we will determine contrast or not based on UA results. Monitor patient. 1604: Toradol 30 mg IV for mild residual pain. CT abdomen pelvis reviewed by me and shows no acute findings including no obvious renal stone and no obvious mass or abscess on my interpretation. Radiology report agrees. Radiology report mentions nonobstructing stone to the right kidney. All of this was discussed with the patient. Discharged home with return precautions. Patient verbalized understanding instructions and agreement with plan. Diagnostic Imaging Diagonstic Imaging: CT Plain Films/CT/US/NM/MRI: abdomen, pelvis Comments [facility]. [place], [place] NAME: FRACISCO JOAQUIN [facility] REC#: [id number] PT STATUS: REG ER : 1970 PHYSICIAN: BETHANY FIGUREOA MD ADMIT DATE: 05/23/23/ER Draft Date of Exam:05/23/23 CT ABD/PELVIS WO(KIDNEY STONE) PROCEDURE: CT urinary tract, rule out kidney stone. TECHNIQUE: Multiple contiguous axial images were obtained through the abdomen and pelvis without the use of intravenous contrast. Auto Exposure Controls were utilized during the CT exam to meet ALARA standards for radiation dose reduction. INDICATION: Suspicion for nephrolithiasis, now with flank pain. COMPARISON: Study compared with 04/28/2021. FINDINGS: There is some mild chronic right renal volume loss. There is a tiny stone, 2 mm, within a right renal lower pole calyx, nonobstructing. No perinephric or periureteric edema. No opaque ureteral stone. The bladder is unremarkable although poorly distended limiting its evaluation. The lung bases are clear. Liver, spleen, adrenals, and pancreas are unremarkable. The gallbladder is unremarkable. The atherosclerotic aorta is nonaneurysmal. There were no findings of appendicitis or diverticulitis. The uterus and adnexa are unremarkable. IMPRESSION: Nonobstructing right renal stone. Some chronic right renal atrophy and volume loss. No acute appearing abnormality. Dictated on workstation # [id number] Dict: 05/23/23 1523 Trans: 05/23/23 1530 [id number] Interpreted by: KWADWO CHANEL Electronically signed by: Departure Impression Primary Impression: Low back pain Qualified Codes: M54.50 - Low back pain, unspecified Additional Impression: Radiculopathy Qualified Codes: M54.17 - Radiculopathy, lumbosacral region Disposition: HOME, SELF-CARE Condition: Stable Departure-Patient Inst. Decision time for Depature: 16:05 Referrals: JANY GOSS APRN (PCP/Family) Primary Care Physician Patient Instructions: Radiculopathy, Low Back Pain (DC) Add. Discharge Instructions: All discharge instructions reviewed with patient and/or family. Voiced understanding. You may take ibuprofen 600 mg every 8 hours as needed for pain. You may also take Tylenol/acetaminophen 1000 mg every 8 hours as needed for pain. You may use [id number] Icy Hot with lidocaine patches or cream, Aspercreme with lidocaine patches or cream, Salonpas with lidocaine patches or cream or similar items to area of concern per package directions. Take medications as directed. Follow-up with your doctor in a few days for recheck. Return for worse pain, fever, vomiting, weakness, breathing problems or other concerns as needed. Scripts Cyclobenzaprine HCl (Cyclobenzaprine HCl) 10 Mg Tablet 10 MG PO Q8H PRN for SPASMS, #15 TAB 0 Refills Prov: BETHAYN FIGUEROA MD 05/23/23 BETHANY FIGUEROA MD May 23, 2023 14:39
[2023-05-23 15:17] LABS: CLARITY,URINE CLEAR; COLOR,URINE YELLOW; PH,URINE 5.5 (5-9); PROTEIN,URINE NEGATIVE (NEGATIVE)
[2023-05-23 15:18] LABS: BACTERIA,URINE NEGATIVE /HPF; BILIRUBIN,URINE NEGATIVE (NEGATIVE); GLUCOSE, URINE (UA) NEGATIVE (NEGATIVE); KETONES,URINE NEGATIVE (NEGATIVE); LEUKOCYTE ESTERASE ,URINE NEGATIVE (NEGATIVE); NITRITE,URINE NEGATIVE (NEGATIVE)
--- NOTE | 2023-05-23 15:31 | Diagnostic Imaging Report ---
PROCEDURE: CT urinary tract, rule out kidney stone. TECHNIQUE: Multiple contiguous axial images were obtained through the abdomen and pelvis without the use of intravenous contrast. Auto Exposure Controls were utilized during the CT exam to meet ALARA standards for radiation dose reduction. INDICATION: Suspicion for nephrolithiasis, now with flank pain. COMPARISON: Study compared with 04/28/2021. FINDINGS: There is some mild chronic right renal volume loss. There is a tiny stone, 2 mm, within a right renal lower pole calyx, nonobstructing. No perinephric or periureteric edema. No opaque ureteral stone. The bladder is unremarkable although poorly distended limiting its evaluation. The lung bases are clear. Liver, spleen, adrenals, and pancreas are unremarkable. The gallbladder is unremarkable. The atherosclerotic aorta is nonaneurysmal. There were no findings of appendicitis or diverticulitis. The uterus and adnexa are unremarkable. IMPRESSION: Nonobstructing right renal stone. Some chronic right renal atrophy and volume loss. No acute appearing abnormality. Dictated by: Dictated on workstation # [id number]
[2023-05-23] MEDS ORDERED: KETOROLAC INJ 30 MG/ML VIAL IVP STA (16:03)
[2023-05-23] MEDS ORDERED: CYCL10TA25 PO (16:06)
[2023-05-23 16:15] VITALS: BP 132/71
== END 2023-05-23 16:15 | disposition home or self-care (01) ==
LOC: EDUNIT# 13:44 → ER 13:46
DX: M54.16 Radiculopathy, lumbar region (principal); N20.0 Calculus of kidney; F17.210 Nicotine dependence, cigarettes, uncomplicated
CPT/HCPCS: 36415; 74176; 80053; 81000; 85025; 86141